=== PATIENT | male | born 1980 | race Caucasian/White ===

== ENCOUNTER → 2017-12-26 | Outpatient (CLI) | payer BC ==
[~2017-12-26] MED LIST: VITAMIN C PO
== END | disposition home or self-care (01) ==
LOC: CFH 07:47
PROVIDERS: ATTEND Internal Medicine Cardiovascular Disease
DX: R00.2 Palpitations (principal); D64.9 Anemia, unspecified; Z85.030 Personal history of malignant carcinoid tumor of large intestine
CPT/HCPCS: 93306

== ENCOUNTER → 2018-11-13 | Outpatient (CLI) | payer BC | END | disposition home or self-care (01) | LOC: RAD 07:38 | PROVIDERS: ATTEND Family Medicine | DX: K22.2 Esophageal obstruction (principal); R10.9 Unspecified abdominal pain; R13.10 Dysphagia, unspecified | CPT/HCPCS: 74220 ==

== ENCOUNTER 2021-07-27 11:05 | Outpatient (CLI) | payer BC | END 2021-07-27 23:59 | disposition home or self-care (01) | LOC: CFH 11:05 | PROVIDERS: ATTEND Student in an Organized Health Care Education/Training Program | DX: R07.89 Other chest pain (principal) | CPT/HCPCS: 93306; 93356 ==